=== PATIENT | male | born 1990 | race African-American/Black ===

== ENCOUNTER 2023-09-26 08:20 | Emergency (ER) | payer SELFPAY ==
[~2023-09-26] VITALS: Ht 177.8 cm; Wt 79.0 kg
[2023-09-26 08:32] VITALS: O2SAT 100
[2023-09-26 09:08] LABS: CLARITY URINE TURBID (CLEAR); COLOR URINE DARK YELLOW (YELLOW); GLUCOSE URINE NEGATIVE (NEGATIVE); KETONES URINE TRACE (NEGATIVE); LEUKOCYTE ESTERASE URINE 3+ (NEGATIVE); NITRITE URINE NEGATIVE (NEGATIVE); OCCULT BLOOD URINE 3+ (NEGATIVE); PH URINE 6.5 (4.5-8.0); PROTEIN URINE 1+ (NEGATIVE); SPECIFIC GRAVITY URINE 1.024 (1.005-1.030)
[2023-09-26 09:34] LABS: MUCUS URINE TRACE /lpf (NONE/TRACE); SQUAMOUS EPITHELIAL CELL URINE NONE SEEN /lpf (RARE/1+); WBC URINE TNTC /hpf (0-2)
[2023-09-26 09:35] LABS: RBC URINE 25-50 /hpf (0-2)
[2023-09-26 09:36] LABS: BACTERIA URINE 1+
[2023-09-26 09:40] LABS: BASOPHILS % 0.3 % (0.0-2.0); DIFFERENTIAL COMMENT 0; EOSINOPHILS % 1.1 % (0.0-5.0); HEMATOCRIT. 42.3 % (42.0-52.0); HEMOGLOBIN. 13.5 g/dL (14.0-18.0); MEAN CORPUSCULAR HEMOGLOBIN 23.5 pg (28.0-32.0); MEAN CORPUSCULAR HGB CONC 31.9 g/dL (31.0-37.0); MEAN CORPUSCULAR VOLUME 73.6 fL (80.0-94.0); MEAN PLATELET VOLUME 8.9 fl (7.4-10.4); MONOCYTES % 8.5 % (2.0-8.0); NEUTROPHILS % 75.1 % (40.0-76.0); PLATELET 183 x1000/uL (130-400); RED BLOOD CELL COUNT 5.74 mill/uL (4.7-6.1); WHITE BLOOD COUNT 8.4 x1000/uL (4.5-11.0)
[2023-09-26 09:49] LABS: CHLORIDE 105 mEq/L (98-107); POTASSIUM 3.7 mEq/L (3.5-5.1); SODIUM 141 mEq/L (136-145)
[2023-09-26 09:50] LABS: CARBON DIOXIDE 29 mEq/L (21-32)
[2023-09-26 09:55] LABS: CREATININE 0.7 mg/dL (0.6-1.3); GLUCOSE 114 mg/dL (70-105); UREA NITROGEN BLOOD 6 mg/dL (9-23)
[2023-09-26] MEDS ORDERED: PHEN-910 MT (10:51)
[2023-09-26] MEDS ORDERED: SULF1TAB48 MT (10:51)
[2023-09-26 11:00] VITALS: BP 110/68; PULSE 85; RESP 17; TEMP 98
[2023-09-26] MEDS: KETOROLAC 15MG/ML VIAL IM ONE (11:10)
[2023-09-29 15:07] LABS: CHLAMYDIA TRACHOMATIS NAA Negative (Negative); NEISSERIA GONORRHOEAE NAA Negative (Negative)
== END 2023-09-26 15:18 | disposition home or self-care (01) ==
LOC: ER 08:20
DX: R30.0 Dysuria (principal); R31.9 Hematuria, unspecified; N30.90 Cystitis, unspecified without hematuria
CPT/HCPCS: 87491; 87591; 80048; 81003; 85025; 87086; 87186; 87077; 36415; 74176; 96372; 99285; J1885; Z7610